=== PATIENT | male | born 1935 | race Caucasian/White ===

== ENCOUNTER 2021-01-31 23:40 | Inpatient (IN) | payer MEDICARE ==
[~2021-01-31] VITALS: Ht 175.3 cm; Wt 68.0 kg
[2021-02-01 00:19] LABS: HEMOGLOBIN 13.9 gm/dl (14.0-17.5); RED BLOOD COUNT 4.74 M/UL (4.20-5.50); WHITE BLOOD COUNT 15.3 K/UL (4.5-11.0)
[2021-02-01] MEDS ORDERED: AUGMENTIN 875-1 EACH PO (04:30)
[2021-02-01] MEDS ORDERED: ISOSORBIDE DINI30 MG PO (04:31)
[2021-02-01] MEDS ORDERED: AMLODIPINE BESYL5 MG PO (04:31)
[2021-02-01] MEDS ORDERED: LOPRESSOR 25 MG25 MG PO (04:31)
[2021-02-01] MEDS ORDERED: CLOPIDOGREL75 MG PO (04:32)
[2021-02-01] MEDS ORDERED: ZOCOR40 MG PO (04:32)
[2021-02-01] MEDS ORDERED: ASPIRIN EC81 MG PO (04:33)
[2021-02-01] MEDS ORDERED: OCUVITE ADULT1 EAC1 PO (04:33)
[2021-02-01] MEDS ORDERED: RED YEAST RICE600 MG PO (04:34)
[2021-02-01] MEDS ORDERED: LISINOPRIL5 MG PO (04:35)
[2021-02-01 09:52] LABS: HEMOGLOBIN 13.2 gm/dl (14.0-17.5); RED BLOOD COUNT 4.52 M/UL (4.20-5.50); WHITE BLOOD COUNT 14.7 K/UL (4.5-11.0)
[2021-02-03 04:52] LABS: HEMOGLOBIN 14.3 gm/dl (14.0-17.5); RED BLOOD COUNT 4.85 M/UL (4.20-5.50)
[2021-02-03 05:07] LABS: WHITE BLOOD COUNT 23.4 K/UL (4.5-11.0)
[2021-02-03 05:25] LABS: BUN/CREATININE RATIO 33 (0-10)
[2021-02-04 04:00] LABS: HEMOGLOBIN 15.5 gm/dl (14.0-17.5); RED BLOOD COUNT 5.03 M/UL (4.20-5.50); WHITE BLOOD COUNT 20.9 K/UL (4.5-11.0)
[2021-02-04 04:26] LABS: BUN/CREATININE RATIO 34 (0-10)
[2021-02-06 03:41] LABS: HEMOGLOBIN 15.4 gm/dl (14.0-17.5)
[2021-02-06 04:08] LABS: BUN/CREATININE RATIO 32 (0-10)
[2021-02-07 04:39] LABS: HEMOGLOBIN 14.6 gm/dl (14.0-17.5); RED BLOOD COUNT 4.81 M/UL (4.20-5.50); WHITE BLOOD COUNT 16.7 K/UL (4.5-11.0)
[2021-02-07 04:58] LABS: BUN/CREATININE RATIO 34 (0-10)
[2021-02-08 07:27] LABS: HEMOGLOBIN 14.1 gm/dl (14.0-17.5); RED BLOOD COUNT 4.79 M/UL (4.20-5.50)
[2021-02-08 07:28] LABS: WHITE BLOOD COUNT 21.5 K/UL (4.5-11.0)
[2021-02-08 07:52] LABS: BUN/CREATININE RATIO 36 (0-10)
[2021-02-10] MEDS ORDERED: SYSTANE COMPLET10 ML EYEBOTH (04:34)
[2021-02-10 09:53] LABS: HEMOGLOBIN 15.8 gm/dl (14.0-17.5); RED BLOOD COUNT 5.26 M/UL (4.20-5.50); WHITE BLOOD COUNT 24.6 K/UL (4.5-11.0)
[2021-02-10 10:10] LABS: BUN/CREATININE RATIO 35 (0-10)
[2021-02-11 10:48] LABS: WHITE BLOOD COUNT 19.8 K/UL (4.5-11.0)
[2021-02-11 10:51] LABS: HEMOGLOBIN 13.7 gm/dl (14.0-17.5); RED BLOOD COUNT 4.45 M/UL (4.20-5.50)
[2021-02-11 11:12] LABS: BUN/CREATININE RATIO 40 (0-10)
[2021-02-12 03:32] LABS: RED BLOOD COUNT 4.85 M/UL (4.20-5.50)
[2021-02-12 03:55] LABS: WHITE BLOOD COUNT 34.2 K/UL (4.5-11.0)
--- NOTE | 2021-02-13 07:54 | NUR ---
0707 02/13/21 JOSEFINA SOSA, PATIENTS SON NOTIFIED THAT PATIENTS HEART RATE WAS DROPPING TO THE THIRTIES AND OXYGEN WAS DROPPING INTO THE FIFTIES. PATIENT WAS MADE COMFORT MEASURES ON 02/12/21. 0715 TWO NURSES PRONOUNCED THAT THE PATIENT HAD PASSED, TRANSPORTATION [employer]IST[employer] AND DR. PONCE WERE NOTIFIED, DR. BECERRIL TO BE NOTIFIED AT 0800.
== END 2021-02-13 07:15 | disposition expired | DRG 871 ==
LOC: ER1 23:40 → PROG CARE 02-01 01:16 → CDU 02-01 01:16 → PROG CARE 02-01 04:29
PROVIDERS: Emergency Medicine; Internal Medicine; Internal Medicine Infectious Disease; Internal Medicine Pulmonary Disease; ADMIT Internal Medicine
PROC: 8E0ZXY6 Isolation (ICD-10-PCS; principal; 2021-02-01)
PROC: 3E0333Z Introduction of Anti-inflammatory into Peripheral Vein, Percutaneous Approach (ICD-10-PCS; 2021-02-01)
PROC: XW033E5 Introduction of Remdesivir Anti-infective into Peripheral Vein, Percutaneous Approach, New Technology Group 5 (ICD-10-PCS; 2021-02-01)
PROC: 5A09557 Assistance with Respiratory Ventilation, Greater than 96 Consecutive Hours, Continuous Positive Airway Pressure (ICD-10-PCS; 2021-02-01)
DX: A41.89 Other specified sepsis (principal); U07.1 COVID-19; J12.82 Pneumonia due to coronavirus disease 2019; J80 Acute respiratory distress syndrome; N17.9 Acute kidney failure, unspecified; R73.9 Hyperglycemia, unspecified; Z66 Do not resuscitate; T38.0X5A Adverse effect of glucocorticoids and synthetic analogues, initial encounter; I12.9 Hypertensive chronic kidney disease with stage 1 through stage 4 chronic kidney disease, or unspecified chronic kidney disease; N18.30 Chronic kidney disease, stage 3 unspecified; I25.10 Atherosclerotic heart disease of native coronary artery without angina pectoris; R53.81 Other malaise; K21.9 Gastro-esophageal reflux disease without esophagitis; Z82.49 Family history of ischemic heart disease and other diseases of the circulatory system; Z95.1 Presence of aortocoronary bypass graft; Z79.82 Long term (current) use of aspirin; Z79.899 Other long term (current) drug therapy; Z79.52 Long term (current) use of systemic steroids
CPT/HCPCS: 36415; 36600; 71045; 73502; 73560; 80048; 80053; 82550; 82553; 82728; 82803; 82962; 83605; 83615; 83690; 83735; 83874; 83880; 84100; 84484; 85025; 85379; 85384; 85610; 85730; 86140; 87040; 93005; 94640; 94660; 94664; 94760; 96374; 97161; 97530; 99285; J0456; J0696; J1100; J1650; J2060; J7030; J7050; U0002